=== PATIENT | female | born 1990 | race Caucasian/White ===

== ENCOUNTER 2020-06-26 06:04 | Inpatient (IN) | payer OTHER, SELFPAY ==
[2020-06-26] VITALS (12 sets, daily range): BP systolic 105–138; BP diastolic 68–100; PULSE 90–129; RESP 14–20; TEMP 36.9–37.2; O2SAT 98–100; BMI 24.3
--- NOTE | ~2020-06-26 | CT_ITS ---
EXAMINATION: CT abdomen pelvis w con DATE: 06/26/2020 08:02 INDICATION: Generalized abdominal pain. TECHNIQUE: Computed tomography (CT) of the abdomen and pelvis was performed with 100 mL Omnipaque 350 intravenous contrast. Automated exposure control and iterative reconstruction technique were employe d. The dose-length product was 382.67 mGy-cm. COMPARISON: None. FINDINGS: The visualized portions of the lung bases demonstrate mild atelectasis. No pleural effusion . The heart size is normal. No pericardial effusion. The liver and spleen are normal. There are galls tones in the gallbladder, which is normal in size. The pancreas, adrenal glands, and kidneys are norm al. There are no dilated loops of bowel. There is wall thickening of loops of jejunum, consistent wit h enteritis. The appendix is normal. There are no pathologically enlarged lymph nodes. There is no fr ee intraperitoneal fluid. There is fat stranding in the greater omentum, consistent with edema versus inflammation. There is mild lumbar spondylosis. IMPRESSION: 1. Wall thickening of loops of jejunum, consistent with enteritis. 2. Cholelithiasis. No evidence of acute cholecystitis. Reviewed, dictated and finalized at location A.
--- NOTE | 2020-06-26 06:22 | PC.NURSE ---
Faxing paper work to [facility] to request pt. records.
--- NOTE | 2020-06-26 06:26 | ED.GENADULT ---
HPI - General Adult General Chief complaint: Abdominal Pain <Jacky Yoo MD - Last Filed: 06/26/20 06:28> Stated complaint: abd pain <Jacky Yoo MD - Last Filed: 06/26/20 06:28> Time Seen by Provider: 06/26/20 06:22 <Jacky Yoo MD - Last Filed: 06/26/20 06:28> History of Present Illness HPI narrative: Patient is a 20-year-old female presents the emergency department with chief complaint of abdominal pain. The patient reports that yesterday she had sudden onset right lower quadrant pain radiates to her back patient was seen at [facility] and had laboratory studies and a CT scan that were reported as negative. Patient was sent home with a prescription for naproxen and Bentyl. The patient reports that she is continued to have pain that is gotten worse today. Patient states the pain is sharp and cramping-like patient reports not improved by anything and states is worsened with movement. Patient reports she still has her gallbladder and still has her appendix <Jacky Yoo MD - Last Filed: 06/26/20 06:28> Related Data Allergies/adverse reactions: Allergies Allergy/AdvReac Type Severity Reaction Status Date / Time No Known Allergies Allergy Verified 06/26/20 06:12 <Jacky Yoo MD - Last Filed: 06/26/20 06:28> Review of Systems Review of Systems: Narrative: A 10 system review of systems was completed on the patient and is negative except for what is stated in the HPI. Nursing and ancillary documentation was reviewed. <Jacky Yoo MD - Last Filed: 06/26/20 06:28> PMFSH Social History Social History: Social History Gender identity (if verbalized by the patient): Female <Jacky Yoo MD - Last Filed: 06/26/20 06:28> Exam Narrative: Exam Narrative: GENERAL: Well-appearing, well-nourished, and in no acute distress. HEAD: Normocephalic, atraumatic. EYES: PERRLA and EOMI. ENT: Nares clear, no rhinorrhea or epistaxis. Mucous membranes moist. NECK: Supple. CHEST: Clear to auscultation. No respiratory distress. HEART: Regular rate and rhythm. No murmur heard. Normal peripheral pulses. ABDOMEN: Soft, diffuse tenderness throughout the abdomen, nondistended, normal active bowel sounds. EXTREMITIES: Normal range of motion. No edema. SKIN: Warm, dry, no rash. NEURO: No focal deficits. Alert and oriented x3. PSYCH: Normal mood and affect. <Jacky Yoo MD - Last Filed: 06/26/20 06:28> Course Vital Signs Vital signs: Vital Signs Temperature 36.9 C 06/26/20 06:09 Pulse Rate 129 H 06/26/20 06:09 Respiratory Rate 14 06/26/20 06:09 Blood Pressure 138/100 H 06/26/20 06:09 Pulse Oximetry 99 06/26/20 06:09 Temperature 36.9 C 06/26/20 06:09 Pulse Rate 107 H 06/26/20 07:45 Respiratory Rate 20 06/26/20 07:45 Blood Pressure 136/77 06/26/20 07:45 Pulse Oximetry 100 06/26/20 07:45 <Jacky Yoo MD - Last Filed: 06/26/20 06:28> Vital Signs Temperature 36.9 C 06/26/20 06:09 Pulse Rate 129 H 06/26/20 06:09 Respiratory Rate 14 06/26/20 06:09 Blood Pressure 138/100 H 06/26/20 06:09 Pulse Oximetry 99 06/26/20 06:09 Temperature 36.9 C 06/26/20 06:09 Pulse Rate 107 H 06/26/20 07:45 Respiratory Rate 20 06/26/20 07:45 Blood Pressure 136/77 06/26/20 07:45 Pulse Oximetry 100 06/26/20 07:45 <Fadia Monge MD - Last Filed: 06/26/20 08:54> Medical Decision Making Vital Signs Vital Signs: Vital Signs Temperature 36.9 C 06/26/20 06:09 Pulse Rate 129 H 06/26/20 06:09 Respiratory Rate 14 06/26/20 06:09 Blood Pressure 138/100 H 06/26/20 06:09 Pulse Oximetry 99 06/26/20 06:09 Temperature 36.9 C 06/26/20 06:09 Pulse Rate 107 H 06/26/20 07:45 Respiratory Rate 20 06/26/20 07:45 Blood Pressure
[2020-06-26] MEDS: MORPHINE SULFATE (*CRX) 4 MG/ML INJ IV PUSH ×3 (06:31→10:48)
[2020-06-26] MEDS: SODIUM CHLORIDE 0.9% IV 1,000 ML 999 ML IV CONT ×2 (06:31→07:03)
[2020-06-26] MEDS: ONDANSETRON INJ 4 MG/2 ML VIAL IV PUSH ×2 (06:32→17:17)
[2020-06-26 06:47] LABS: Basophils Percent Auto 0.2 % (0.2-1.2); Eosinophils Percent Auto 0.1 % (0-4.4); Hematocrit 40.7 % (37.0-47.0); Hemoglobin 13.6 g/dL (12.0-15.0); Immature Granulocyte Absolute 0.16 K/mm3 (0.00-0.031); Immature Granulocyte Percent A 0.8 % (0-0.5); Lymphocytes Absolute Auto 1.11 K/mm3 (0.9-3.2); Lymphocytes Percent Auto 5.6 % (18.3-44.2); Mean Corpuscular HGB Conc 33.4 g/dl (32-36); Mean Corpuscular Hemoglobin 30.7 pg (26-34); Mean Corpuscular Volume 91.9 fl (80-100); Monocytes Absolute Auto 0.4 K/mm3 (0.1-0.6); Monocytes Percent Auto 1.8 % (2.6-8.5); Neutrophils Absolute Auto 18.1 K/mm3 (1.3-6.7); Neutrophils Percent Auto 91.5 % (45.5-73.1); Platelet Count Result 154 k/mm3 (150-375); Red Blood Count 4.43 M/mm3 (4.2-5.4); Red Cell Distribution Width 12.5 % (11.5-14.5); White Blood Count 19.7 K/mm3 (4.5-10.0)
[2020-06-26 06:55] LABS: Lactic Acid Reflex 3.2 mmol/L (0.7-2.1)
[2020-06-26 06:58] LABS: Alkaline Phosphatase 52 U/L (38-126); Anion Gap 9 mmol/L (8-16); Aspartate Amino Transferase 30 U/L (14-36); Blood Urea Nitrogen 9 mg/dL (7-17); Calcium 8.5 mg/dL (8.4-10.2); Carbon Dioxide 20 mmol/L (22-30); Chloride 106 mmol/L (98-107); Estimated CRCL calculation 149 ml/min; Estimated Glomerular Filt Rate > 60; Glucose 142 mg/dL (65-105); Lipase 278 U/L (23-300); Potassium 3.6 mmol/L (3.4-5.0); Sodium 135 mmol/L (137-145)
[2020-06-26 07:07] LABS: Alanine Aminotransferase 25 U/L (4-35)
[2020-06-26 08:03] LABS: Add Urine Microscopic? YES; Appearance Urine Clear (Clear); Bacteria Urine Trace /hpf; Bilirubin Urine Negative (Negative); Blood Urine Negative (Negative); Color Urine Yellow (Yellow); Glucose Urine UA Negative (Negative); Ketones Urine Negative (Negative); Leukocyte Esterase Ur Negative LEU/UL (Negative); Mucus Urine Rare /lpf; Nitrate Urine Negative (Negative); Protein Urine 1+ mg/dL (Negative); RBC Urine 0-2 /hpf (0-2); Specific Grav Ur 1.014 (1.001-1.035); Squamous Epithelial Cell Urine Rare /hpf (Few); Urobilinogen Urine Negative mg/dL (<2.0); WBC Urine 0-3 /hpf
[2020-06-26 09:42] LABS: Reflex Lactic Acid Yes or No Add Lactic
--- NOTE | 2020-06-26 11:17 | ADMGEN ---
This patient, Kylee Morales, was admitted to 3 [facility] Surg Room 326-01 at 1050. Report received from Cornelia. Patient/family oriented to hospital policies and general routines including ID bracelet, bed and alarms, visiting hours, pain management, procedures, bathroom and other care routines, personal items, smoking policy, room service/diet, and visiting hours. Information on how to activate the Rapid Response Team has been discussed. Patient/Family are encouraged to report perceived risks to care and to ask questions if they do not understand what they are told or what they should do.
[2020-06-26 11:28] LABS: Lactic Acid 1.1 mmol/L (0.7-2.1)
[2020-06-26] MEDS: SODIUM CHLORIDE 0.9% IV 1,000 ML 125 ML IV CONT ×2 (12:40→23:14)
--- NOTE | 2020-06-26 12:55 | PM.IMHP ---
H&P: HPI History of Present Illness Date/Time: 06/26/20 12:55 Chief Complaint: Abdominal pain. Narrative: This is a 29-year-old female smoker with history of IV drug abuse who presented to the emergency department earlier today via private vehicle from home for evaluation of abdominal pain. Yesterday she developed sudden onset right lower quadrant pain which started about an hour after eating lunch which consisted of salad and baked chicken. She was seen in the emergency department at [facility] and laboratory studies and CT of the abdomen and pelvis were reportedly negative and she was sent home with prescriptions for naproxen and Bentyl. Unfortunately she has continued to have severe abdominal pain though she has not had a chance to fill her prescriptions filled. Currently she describes sharp and cramping like pain throughout the right side of the abdomen with nausea and emesis x1. The pain is much more manageable after receiving IV Tylenol, rated currently 3/10. She gives no aggravating or alleviating factors. Nobody else who ate the meal has developed similar symptoms. She did not handle the raw chicken prior to preparation. She has never had similar symptoms in the past and denies personal and family history of inflammatory bowel disease. No recent travel. No diarrhea. No recent antibiotic use. Review of Systems Review of Systems: Narrative: Twelve systems were reviewed with pertinent positives and negatives as per HPI. She has lost about 10 pounds in the last couple of months however was doing IV crystal meth up until 3 weeks ago. She has not had any withdrawal symptoms from stopping that and denies any other drug abuse. No sinus congestion, rhinorrhea, otalgia, or odynophagia. She does wheeze quite frequently but has never been diagnosed with asthma however she suspects that she likely has it. No dysphagia or concerns for aspiration. She denies dysuria and pelvic pain. Except as documented, all other systems were reviewed and are negative. [facility] Past Medical History Medical History Anorexia Bipolar disorder Depression with anxiety History of suicide attempt (01/2018) Polysubstance abuse Tobacco dependence Surgical History Surgical History History of 2 sections History of arthroscopy of right knee Family History Family History Grandparent Breast cancer Hypertension Diabetes mellitus Blind Father Cholecystitis Social History Social History (Updated 06/26/20 @ 23:09 by Zoila Henning PA-C) Social History: The patient lives in [place]. She has 2 children. Currently unemployed. Has smoked 1 pack of cigarettes per day for the last 15 years. Uses marijuana frequently. History IV methamphetamine use, last used the 1st week of June 2020. Denies alcohol abuse. She designates her mother, Emy Morales, as her surrogate decision maker and she wishes to be a full code. Meds Home Medications and Allergies Home Medications Medication Instructions Recorded Confirmed Type No Home Medications 06/26/20 06/26/20 History Allergies Allergy/AdvReac Type Severity Reaction Status Date / Time No Known Allergies Allergy Verified 06/26/20 06:12 Vital Signs Vital Signs - 24 hr 06/26/20 06:09 06/26/20 06:23 06/26/20 07:45 Temperature 98.4 F Pulse Rate 129 H 117 H 107 H Respiratory Rate 14 18 20 Blood Pressure 138/100 H 133/82 136/77 Pulse Oximetry 99 100 100 06/26/20 09:17 06/26/20 10:08 06/26/20 10:35 Temperature 98.8 F Pulse Rate 112 H 113 H 101 H Respiratory Rate 20 19 20 Blood Pressure 129/76 126/85 124/75 Pulse Oximetry 98 100 100 06/26/20 12:16 Temperature Pulse Rate Respiratory Rate Blood Pressure Pulse Oximetry 100 Exam Narrative: Exam Narrative:
--- NOTE | 2020-06-26 13:16 | ECG_ITS ---
Measurements Intervals [place] Rate: 98 P: -18 [place]: 134 QRS: -17 QRSD: 92 T: 22 QT: 340 QTc: 434 Interpretive Statements SINUS RHYTHM NORMAL ECG Electronically Signed On 06-26-2020 14:43:08 CDT by Neri Bowen D.O.
[2020-06-26 14:26] LABS: Anion Gap 3 mmol/L (8-16); Blood Urea Nitrogen 7 mg/dL (7-17); CRP 22.2 mg/dL (<1.0); Calcium 7.4 mg/dL (8.4-10.2); Carbon Dioxide 25 mmol/L (22-30); Chloride 108 mmol/L (98-107); Estimated CRCL calculation 130 ml/min; Estimated Glomerular Filt Rate > 60; Glucose 90 mg/dL (65-105); Magnesium 1.3 mg/dL (1.6-2.3); Potassium 3.5 mmol/L (3.4-5.0); Sodium 136 mmol/L (137-145)
[2020-06-26] MEDS: metroNIDAZOLE 500 MG/ISO 100ML 500 MG/100 ML BAG 100 MG IVPB ×2 (17:17→23:11)
[2020-06-26 17:25] LABS: Amphetamine Screen Urine Negative (Negative); Barbiturate Screen Urine Negative (Negative); Benzodiazepines Screen Urine Negative (Negative); Cannabinoid Screen Urine Positive (Negative); Cocaine Screen Urine Negative (Negative); Methadone Screen Urine Negative (Negative); Opiate Screen Urine Positive (Negative); Phencyclidine Screen Urine Negative (Negative)
[2020-06-26] MEDS: ACETAMINOPHEN 325 MG TABLET 650 MG PO (21:21)
[2020-06-27] VITALS (8 sets, daily range): BP systolic 123–146; BP diastolic 72–75; PULSE 71–110; RESP 16–20; TEMP 36.1–37.8; O2SAT 99–100; BMI 24.3
[2020-06-27] MEDS: ACETAMINOPHEN 325 MG TABLET 650 MG PO (03:18)
[2020-06-27] MEDS: metroNIDAZOLE 500 MG/ISO 100ML 500 MG/100 ML BAG 100 MG IVPB ×3 (06:14→18:03)
[2020-06-27 06:17] LABS: Hematocrit 33.8 % (37.0-47.0); Hemoglobin 11.4 g/dL (12.0-15.0); Immature Platelet Fraction Pct 2.9 % (0.9-11.2); Mean Corpuscular HGB Conc 33.7 g/dl (32-36); Mean Corpuscular Hemoglobin 30.8 pg (26-34); Mean Corpuscular Volume 91.4 fl (80-100); Mean Platelet Volume 9.7 fl (7.4-10.4); Platelet Count Result 127 k/mm3 (150-375); Red Cell Distribution Width 12.6 % (11.5-14.5); White Blood Count 17.6 K/mm3 (4.5-10.0)
[2020-06-27 06:21] LABS: Potassium 3.5 mmol/L (3.4-5.0)
[2020-06-27 06:22] LABS: Alanine Aminotransferase 43 U/L (4-35); Albumin Level 2.9 g/dL (3.5-5.1); Alkaline Phosphatase 61 U/L (38-126); Anion Gap 3 mmol/L (8-16); Aspartate Amino Transferase 36 U/L (14-36); Bilirubin,Total 0.6 mg/dL (0.2-1.3); Blood Urea Nitrogen 8 mg/dL (7-17); Calcium 7.9 mg/dL (8.4-10.2); Carbon Dioxide 24 mmol/L (22-30); Chloride 110 mmol/L (98-107); Estimated CRCL calculation 110 ml/min; Estimated Glomerular Filt Rate > 60; Glucose 100 mg/dL (65-105); Magnesium 1.6 mg/dL (1.6-2.3); Sodium 137 mmol/L (137-145)
--- NOTE | 2020-06-27 06:36 | PC.NURSE ---
0640: Called Hospitalist, Dr. Malu Slater to inform that patient is requesting stronger analgesia than Tylenol. Dr. Slater stated I do not have all of your patients. Who's her Attending? She is not on my list. [employer] responded that I will call her Attending, Dr. Read. 0645: Dr. Read returned VM from administrative underwriter to inform that he is off today and that he does not know who is covering for his patients. When looking on the Intranet list of covering docs, Dr. Slater is listed until 7a on this day for all in-house calls, concerns and reports. Will endorse to the AM shift.
[2020-06-27] MEDS: MAGNESIUM SULF 2 GM/WATER 50ML 2 GM/50 ML BAG IVPB (09:09)
[2020-06-27] MEDS: BISACODYL 5 MG TABLET EC PO (11:46)
--- NOTE | 2020-06-27 14:40 | PM.IMPN ---
Progress Note: A&P Assessment and Plan (1) Enteritis: Code(s): K52.9 - Noninfective gastroenteritis and colitis, unspecified Status: Acute Assessment and Plan: Patient presents with abdominal pain. CT abdomen/pelvis demonstrates evidence of enteritis. Diarrhea and vomiting yesterday, none so far today. Continue IV antibiotics with Levaquin and Flagyl. Continue supportive care with antiemetics, pain control. Tolerating very little oral intake today. Clear liquid diet, advance diet as tolerated. (2) Sepsis: Qualifiers: Sepsis type: sepsis due to unspecified organism Sepsis acute organ dysfunction status: unspecified Qualified Code(s): A41.9 - Sepsis, unspecified organism Code(s): A41.9 - Sepsis, unspecified organism Status: Acute Assessment and Plan: Criteria met on arrival evidenced by leukocytosis and tachycardia. These findings could be related to stress reaction from above, although an infectious source could be the enteritis. Blood cultures pending with no growth to date. Continue antibiotics as above. Monitor vital signs and urine output. (3) Polysubstance abuse: Code(s): F19.10 - Other psychoactive substance abuse, uncomplicated Status: Chronic Assessment and Plan: Recently quit using IV crystal methamphetamine around 3 weeks ago. Continued tobacco abuse, denies need for nicotine patch today. (4) Wheezing: Code(s): R06.2 - Wheezing Status: Acute Assessment and Plan: Resolved today. It is possible she may have a diagnosis of asthma. Started on inhalers. Continue Symbicort and albuterol PRN. Subjective Date/time seen: 06/27/20 1430 Interval history: Ms. Morales is a 29yo F admitted with abdominal pain and enteritis. She reports feeling little bit better today overall but still having right lower quadrant abdominal pain which she rates an 8/10 at time my exam. She starts to feel nauseous when she tries to eat anything but has tolerated some soup broth a popsicle so far today. She denies any vomiting. Last bowel movement was yesterday when she was incontinent of diarrheal stool, no BM so far today. No chest pain or shortness of breath. Has been up walking in the room. Review of Systems Review of Systems: All systems reviewed & are unremarkable except as noted in HPI and below Exam Narrative: Exam Narrative: General: Female lying on her right side in bed appears uncomfortable but in no acute distress. HEENT: Normocephalic. EOMI. Tacky mucous membranes. Bottom lip pierced. Neck: Supple. Respiratory: Respirations are even and nonlabored. Lungs clear to auscultation all luna. Tolerating room air. Cardiovascular: Rate and rhythm are regular. Gastrointestinal: Abdomen is soft and nondistended with positive bowel sounds. She is tender to palpation throughout the right lower abdomen. No voluntary guarding or rebound tenderness. Skin: Warm and dry. No rash or lesions on limited exam. Extremities: No cyanosis, clubbing, or edema. Radial and pedal pulses intact. Neurological: Awake and alert, answering questions appropriately. No focal neurological deficits are noted. Speech is clear. Psychiatric: Pleasant and cooperative with normal mood and affect. Objective Data Vital Signs Vital Signs: Last Vital Signs Temp 97.1 F L 06/27/20 14:00 Pulse 100 06/27/20 14:00 Resp 16 06/27/20 14:00 BP 146/75 H 06/27/20 14:00 Pulse Ox 100 06/27/20 14:00 Intake/Output Intake/Output: Intake & Output 06/24/20 06/25/20 06/26/20 06/27/20 23:59 23:59 23:59 23:59 Intake Total 4400 560 Output Total 400 450 Balance 4000 110 Meds/Results Medications: Active Medications Generic Name Dose Route Start Last Admin Trade Name Katherin JAMA
--- NOTE | 2020-06-27 18:07 | PC.NURSE ---
Patient noted to have IV pump shut off. When this nurse asked why it was off, patient noted that IV pump was beeping and didn't want to listen to it. Patient educated on importance of IV fluid intake and reminded to call if pump beeps. Patient voiced understanding and noted will call next time it beeps.
[2020-06-27] MEDS: traMADol HCL (*CRX) 50 MG TABLET PO (19:44)
[2020-06-28] MEDS: metroNIDAZOLE 500 MG/ISO 100ML 500 MG/100 ML BAG 100 MG IVPB ×3 (00:07→11:59)
[2020-06-28] MEDS: SODIUM CHLORIDE 0.9% IV 1,000 ML 125 ML IV CONT (00:16)
[2020-06-28 05:31] VITALS: BP 118/80; PULSE 87; RESP 18; TEMP 37.2; O2SAT 99
[2020-06-28 06:43] LABS: Basophils Percent Auto 0.2 % (0.2-1.2); Eosinophils Absolute Auto 0.1 K/mm3 (0-0.3); Eosinophils Percent Auto 0.8 % (0-4.4); Hematocrit 31.9 % (37.0-47.0); Hemoglobin 10.7 g/dL (12.0-15.0); Immature Granulocyte Absolute 0.06 K/mm3 (0.00-0.031); Immature Granulocyte Percent A 0.5 % (0-0.5); Lymphocytes Absolute Auto 1.53 K/mm3 (0.9-3.2); Lymphocytes Percent Auto 12.6 % (18.3-44.2); Mean Corpuscular HGB Conc 33.5 g/dl (32-36); Mean Corpuscular Hemoglobin 30.4 pg (26-34); Mean Corpuscular Volume 90.6 fl (80-100); Monocytes Absolute Auto 0.7 K/mm3 (0.1-0.6); Monocytes Percent Auto 5.6 % (2.6-8.5); Neutrophils Absolute Auto 9.8 K/mm3 (1.3-6.7); Neutrophils Percent Auto 80.3 % (45.5-73.1); Platelet Count Result 153 k/mm3 (150-375); Red Blood Count 3.52 M/mm3 (4.2-5.4); Red Cell Distribution Width 12.3 % (11.5-14.5); White Blood Count 12.2 K/mm3 (4.5-10.0)
[2020-06-28 06:53] LABS: Alanine Aminotransferase 27 U/L (4-35); Albumin Level 2.8 g/dL (3.5-5.1); Alkaline Phosphatase 65 U/L (38-126); Anion Gap 4 mmol/L (8-16); Aspartate Amino Transferase 22 U/L (14-36); Bilirubin,Total 0.4 mg/dL (0.2-1.3); Blood Urea Nitrogen 6 mg/dL (7-17); Calcium 7.7 mg/dL (8.4-10.2); Carbon Dioxide 24 mmol/L (22-30); Chloride 109 mmol/L (98-107); Estimated CRCL calculation 110 ml/min; Estimated Glomerular Filt Rate > 60; Glucose 96 mg/dL (65-105); Magnesium 1.8 mg/dL (1.6-2.3); Potassium 3.6 mmol/L (3.4-5.0); Sodium 137 mmol/L (137-145)
--- NOTE | 2020-06-28 13:16 | PM.DS ---
DS: Admitting Diagnosis Admitting Diagnosis Admitting Diagnosis: Enteritis, sepsis DS: Discharge Diagnosis Discharge Diagnosis (1) Enteritis: Code(s): K52.9 - Noninfective gastroenteritis and colitis, unspecified Status: Acute Assessment and Plan: Date of Admission 06/26/20 Date of Discharge 06/29/20 Ms. Morales is a 29yo F who presented to the ED for evaluation of abdominal pain. CT abd/pel demonstrated evidence of enteritis without perforation or abscess. She was treated with supportive care including IV antibiotics, bowel rest, IV hydration, pain control and antiemetics. Sepsis criteria met on arrival with leukocytosis and tachycardia which improved. Her diet was gradually advanced and she was tolerating solid food without abdominal pain, nausea or vomiting on day of discharge. She was clinically improved with the therapy outlined above and was hemodynamically stable for discharge 06/29/20 with oral antibiotics to complete the course and a list of local primary care providers to establish care. She was wheezing on arrival, improved with albuterol. She was educated on smoking cessation. She has history of IV drug use and mentions she quit using IV drugs 3 weeks ago. She was congratulated and encouraged in her continued efforts with substance abuse cessation. She was encouraged to seek PCP at [facility] who could also provide substance abuse resources for her as appropriate. (2) Sepsis: Qualifiers: Sepsis type: sepsis due to unspecified organism Sepsis acute organ dysfunction status: unspecified Qualified Code(s): A41.9 - Sepsis, unspecified organism Code(s): A41.9 - Sepsis, unspecified organism Status: Acute Assessment and Plan: Criteria met on arrival evidenced by leukocytosis and tachycardia. These findings could be related to stress reaction from above, although an infectious source could be the enteritis. Stool studies and blood cultures are negative. (3) Polysubstance abuse: Code(s): F19.10 - Other psychoactive substance abuse, uncomplicated Status: Chronic Assessment and Plan: Recently quit using IV crystal methamphetamine around 3 weeks ago. Continued tobacco use, denies need for nicotine patch today. (4) Wheezing: Code(s): R06.2 - Wheezing Status: Acute Assessment and Plan: Resolved today. It is possible she may have a diagnosis of asthma. Started on inhalers. Continue Symbicort and albuterol PRN. DS: Summary Hospital Course Hospital Course: See above Time Spent with Patient Time attestation: Total time spent providing and/or coordinating discharge services: 40 minutes Exam Narrative: Exam Narrative: General: Female lying on her right side in bed appears uncomfortable but in no acute distress. HEENT: Normocephalic. EOMI. Tacky mucous membranes. Bottom lip pierced. Neck: Supple. Respiratory: Respirations are even and nonlabored. Lungs clear to auscultation all luna. Tolerating room air. Cardiovascular: Rate and rhythm are regular. Gastrointestinal: Abdomen is soft and nondistended with positive bowel sounds. She is tender to palpation throughout the right lower abdomen. No voluntary guarding or rebound tenderness. Skin: Warm and dry. No rash or lesions on limited exam. Extremities: No cyanosis, clubbing, or edema. Radial and pedal pulses intact. Neurological: Awake and alert, answering questions appropriately. No focal neurological deficits are noted. Speech is clear. Psychiatric: Pleasant and cooperative with normal mood and affect. DS: Data Data Completed and Pending Labs on day of discharge: Last Vital Signs Temp 96 F L 06/28/20 14:00 Pulse 96 06/28/20 14:00 Resp 16 06/28/20 14:00 BP 128/83 06/28/20 14:00 Pulse Ox 100 06/28
[2020-06-28 14:00] VITALS: BP 128/83; PULSE 96; RESP 16; TEMP 35.5; O2SAT 100
== END 2020-06-28 15:50 | disposition home or self-care (01) | DRG 720 ==
LOC: ANHED 08:54 → ANH3MEDSUR 12:02
PROVIDERS: Emergency Medicine; Physician Assistant; Admitting Provider Family Medicine; Emergency Provider Emergency Medicine; Visit Provider Physician Assistant
DX: A41.9 Sepsis, unspecified organism (principal); A09 Infectious gastroenteritis and colitis, unspecified; R65.10 Systemic inflammatory response syndrome (SIRS) of non-infectious origin without acute organ dysfunction; F31.9 Bipolar disorder, unspecified; F41.8 Other specified anxiety disorders; F17.210 Nicotine dependence, cigarettes, uncomplicated; R63.0 Anorexia; F19.10 Other psychoactive substance abuse, uncomplicated; J45.909 Unspecified asthma, uncomplicated
CPT/HCPCS: 36415; 74177; 80048; 80053; 80307; 81001; 81025; 83605; 83690; 83735; 85025; 85027; 85055; 86140; 87015; 87040; 87045; 87046; 87269; 87272; 87427; 93005; 94640; 96361; 96365; 96366; 96367; 96375; 96376; 99285; A9270; J0131; J1956; J2270; J2405; J2543; J3370; J3475; J7030; Q9967

== ENCOUNTER 2020-08-23 16:06 | Emergency (ER) | payer OTHER, SELFPAY ==
--- NOTE | 2020-08-23 16:35 | PC.NURSE ---
no answer when called @ 1292
== END 2020-08-23 16:35 | disposition left against medical advice (07) ==
DX: Z53.21 Procedure and treatment not carried out due to patient leaving prior to being seen by health care provider (principal)
CPT/HCPCS: 99199

== ENCOUNTER 2021-06-21 11:58 | Emergency (ER) | payer OTHER, SELFPAY ==
[2021-06-21 12:05] VITALS: BP 138/95; PULSE 93; RESP 14; TEMP 36.7; O2SAT 99
--- NOTE | 2021-06-21 12:45 | ED.DENTAL ---
HPI - Dental/Oral General Chief complaint: Dental/Oral Stated complaint: tooth pain Time Seen by Provider: 06/21/21 12:17 History of Present Illness HPI Narrative: 30-year-old female presents to the emergency room with complaints of a left upper molar pain since yesterday. Patient states that she has a follow-up with a dentist next week. Describes pain as a burning and sharp pain that is worse with mastication and exposure to cold foods. Related Data Allergies Allergy/AdvReac Type Severity Reaction Status Date / Time No Known Allergies Allergy Verified 06/26/20 06:12 Review of Systems Review of Systems: CONSTITUTIONAL: Denies fever, chills, or sweats. EYES: Denies visual changes, redness, or discharge. ENT: Reports dental pain CARDIOVASCULAR: Denies chest pain, palpitations, or edema. RESPIRATORY: Denies cough or dyspnea. GASTROINTESTINAL: Denies abdominal pain, nausea, vomiting, or diarrhea. GENITOURINARY: Denies dysuria or hematuria. SKIN: Denies rash or itching. MUSCULOSKELETAL: Denies back pain, joint pain, or myalgia. NEUROLOGIC: Denies headache, numbness, dizziness, or weakness. PSYCHIATRIC: Denies anxiety or depression. [facility] Past Medical History Medical History Anorexia Bipolar disorder Depression with anxiety History of suicide attempt (01/2018) Polysubstance abuse Tobacco dependence Surgical History Surgical History History of 2 sections History of arthroscopy of right knee Family History Family History Grandparent Breast cancer Hypertension Diabetes mellitus Blind Father Cholecystitis Social History Social History Social History: The patient lives in [place]. She has 2 children. Currently unemployed. Has smoked 1 pack of cigarettes per day for the last 15 years. Uses marijuana frequently. History IV methamphetamine use, last used the 1st week of June 2020. Denies alcohol abuse. She designates her mother, Emy Morales, as her surrogate decision maker and she wishes to be a full code. Spiritual care concerns: No Exam Narrative: GENERAL: Well-appearing, well-nourished, and in no acute distress. HEAD: Normocephalic, atraumatic. EYES: PERRLA and EOMI. ENT: Tenderness to the left upper molar, fractured left upper molar. No surrounding erythema or swelling no maxillary or submandibular tenderness or swelling NECK: Supple. No adenopathy or masses. No carotid bruits or JVD CHEST: Clear to auscultation. No respiratory distress. No wheezes rales or rhonchi HEART: Regular rate and rhythm. No murmur heard. Normal peripheral pulses. ABDOMEN: Soft, nontender, nondistended, normal active bowel sounds. EXTREMITIES: Normal range of motion. No edema. SKIN: Warm, dry, no rash. NEURO: No focal deficits. Alert and oriented x3. PSYCH: Normal mood and affect. Course Vital Signs Vital signs: Vital Signs Temperature 36.7 C 06/21/21 12:05 Pulse Rate 93 06/21/21 12:05 Respiratory Rate 14 06/21/21 12:05 Blood Pressure 138/95 H 06/21/21 12:05 Pulse Oximetry 99 06/21/21 12:05 Temperature 36.7 C 06/21/21 12:05 Pulse Rate 93 06/21/21 12:05 Respiratory Rate 14 06/21/21 12:05 Blood Pressure 138/95 H 06/21/21 12:05 Pulse Oximetry 99 06/21/21 12:05 Discharge Plan Discharge Clinical Impression: Toothache, Dental caries Patient Disposition: Home, Self-Care Condition: Stable Instructions: Antibiotic Form, Toothache (ED) Prescriptions: New amoxicillin-pot clavulanate 875-125 mg tablet 1 tablet PO Q12H 10 Days Qty: 20 RF: 0 meloxicam 15 mg tablet 15 mg PO DAILY Qty: 14 RF: 0 No Action albuterol sulfate [Proventil HFA] 90 mcg/actuation Hfa Aerosol Inhaler 2 puff inhalation Q4-6H PRN (Reason: Shortness Of
[2021-06-21] MEDS: KETOROLAC (*BKC) 60 MG/2 ML VIAL IM (12:57)
== END 2021-06-21 13:06 | disposition home or self-care (01) ==
PROVIDERS: Emergency Provider Nurse Practitioner Family
DX: K02.9 Dental caries, unspecified (principal); F17.210 Nicotine dependence, cigarettes, uncomplicated
CPT/HCPCS: 96372; 99283; J1885

== ENCOUNTER 2021-07-02 09:21 | Emergency (ER) | payer OTHER, SELFPAY ==
[2021-07-02 09:23] VITALS: BP 132/81; PULSE 92; RESP 14; TEMP 36.2; O2SAT 95
--- NOTE | 2021-07-02 10:12 | ED.SKABFB ---
HPI - Skin/Abscess/Foreign Bdy General Chief complaint: Skin/Abscess/Foreign Body Stated complaint: oozing from belly button Time Seen by Provider: 07/02/21 09:41 History of Present Illness HPI narrative: 30-year-old female presents to the emergency room with complaints of purulent discharge from her umbilicus. Patient states she woke up this morning with a dried substance around her umbilicus. Patient states she cleaned her umbilicus this am and noticed a purulent/bloody discharge. Patient states this has occurred on one other occasion, and was treated with a topical ABX. Patient denies abd. pain, n/v/d, or fever. Related Data Allergies Allergy/AdvReac Type Severity Reaction Status Date / Time No Known Allergies Allergy Verified 07/02/21 09:40 Review of Systems Review of Systems: CONSTITUTIONAL: Denies fever, chills, or sweats. EYES: Denies visual changes, redness, or discharge. ENT: Denies rhinorrhea, congestion, sore throat, or otalgia. CARDIOVASCULAR: Denies chest pain, palpitations, or edema. RESPIRATORY: Denies cough or dyspnea. GASTROINTESTINAL: Denies abdominal pain, nausea, vomiting, or diarrhea. GENITOURINARY: Denies dysuria or hematuria. SKIN: Reports bloody umbilical discharge MUSCULOSKELETAL: Denies back pain, joint pain, or myalgia. NEUROLOGIC: Denies headache, numbness, dizziness, or weakness. PSYCHIATRIC: Denies anxiety or depression. [facility] Past Medical History Medical History Anorexia Bipolar disorder Depression with anxiety History of suicide attempt (01/2018) Polysubstance abuse Tobacco dependence Surgical History Surgical History History of 2 sections History of arthroscopy of right knee Family History Family History Grandparent Breast cancer Hypertension Diabetes mellitus Blind Father Cholecystitis Social History Social History Social History: The patient lives in [place]. She has 2 children. Currently unemployed. Has smoked 1 pack of cigarettes per day for the last 15 years. Uses marijuana frequently. History IV methamphetamine use, last used the 1st week of June 2020. Denies alcohol abuse. She designates her mother, Emy Morales, as her surrogate decision maker and she wishes to be a full code. Spiritual care concerns: No Exam Narrative: GENERAL: Well-appearing, well-nourished, and in no acute distress. HEAD: Normocephalic, atraumatic. EYES: PERRLA and EOMI. CHEST: Clear to auscultation. No respiratory distress. No wheezes rales or rhonchi HEART: Regular rate and rhythm. No murmur heard. Normal peripheral pulses. ABDOMEN: Soft, nontender, nondistended, normal active bowel sounds. EXTREMITIES: Normal range of motion. No edema. SKIN: scant amount of sanguineous exudate from umbilicus, no surrounding erythema, streaking NEURO: No focal deficits. Alert and oriented x3. PSYCH: Normal mood and affect. Course Vital Signs Vital signs: Vital Signs Temperature 36.2 C L 07/02/21 09:23 Pulse Rate 92 07/02/21 09:23 Respiratory Rate 14 07/02/21 09:23 Blood Pressure 132/81 07/02/21 09:23 Pulse Oximetry 95 07/02/21 09:23 Oxygen Delivery Room Air 07/02/21 09:23 Temperature 36.2 C L 07/02/21 09:23 Pulse Rate 92 07/02/21 09:23 Respiratory Rate 14 07/02/21 09:23 Blood Pressure 132/81 07/02/21 09:23 Pulse Oximetry 95 07/02/21 09:23 Oxygen Delivery Room Air 07/02/21 09:23 Discharge Plan Discharge Clinical Impression: Abscess of umbilicus Patient Disposition: Home, Self-Care Condition: Stable Instructions: Antibiotic Form, Abscess (ED) Prescriptions: New cephalexin 500 mg capsule 500 mg PO Q8H Qty: 21 0RF No Action albuterol sulfate [Proventil HFA] 90 mcg/actuation Hfa Aerosol
== END 2021-07-02 10:35 | disposition home or self-care (01) ==
PROVIDERS: Emergency Provider Nurse Practitioner Family
DX: L02.216 Cutaneous abscess of umbilicus (principal)
CPT/HCPCS: 87070; 87205; 99283

== ENCOUNTER 2021-09-03 04:16 | Emergency (ER) | payer OTHER, SELFPAY ==
[2021-09-03] VITALS (12 sets, daily range): BP systolic 118–133; BP diastolic 79–88; PULSE 78–101; RESP 18–20; TEMP 36.2; O2SAT 96–100
--- NOTE | ~2021-09-03 | XR_ITS ---
EXAMINATION: XR chest 1V portable DATE: 09/03/2021 05:07 INDICATION: Cough and shortness of breath TECHNIQUE: frontal view of the chest was obtained. COMPARISON: Chest radiograph dated 03/31/2018 FINDINGS: The lungs remain clear with no focal airspace opacities, pulmonary edema, pleural effusion or pneumot horax. The cardiomediastinal silhouette is normal. Visualized bones and soft tissues are unremarkable . IMPRESSION: 1. No acute cardiopulmonary disease. Reviewed, dictated and finalized at location A.
--- NOTE | 2021-09-03 04:38 | ECG_ITS ---
Measurements Intervals [place] Rate: 79 P: 38 SD: 151 QRS: -18 QRSD: 85 T: 1 QT: 376 QTc: 433 Interpretive Statements SINUS RHYTHM CANNOT RULE OUT SEPTAL INFARCT, AGE INDETERMINATE ABNORMAL ECG Electronically Signed On 09-03-2021 20:09:31 CDT by Neri Bowen D.O.
--- NOTE | 2021-09-03 04:40 | ED.URI ---
HPI - URI/Sore Throat General Chief Complaint: Upper Respiratory Infection Stated Complaint: feeling sick possible covid exposure Time Seen by Provider: 09/03/21 04:30 Source: patient and RN notes reviewed Mode of arrival: ambulatory Limitations: no limitations History of Present Illness HPI Narrative: This is a 30 year old female smoker who presents for evaluation of covid exposure and URI symptoms. Patient states she developed congestion, cough, wheezing and shortness of breath yesterday. She lives with her sister and her sister has been exposed to covid. She denies sister having covid or symptoms. She denies nausea, vomiting, fever, diarrhea. She has received vaccinations for covid. She denies history of asthma or COPD Related Data Allergies Allergy/AdvReac Type Severity Reaction Status Date / Time No Known Allergies Allergy Verified 09/03/21 04:27 Review of Systems Review of Systems: All systems reviewed & are unremarkable except as noted in HPI and below Constitutional: Constitutional: Reports chills, Denies fatigue and Denies fever(s) ENT: Reports nasal congestion and Denies sore throat Cardiovascular: Cardiovascular: Denies rapid heart rate and Denies radiating jaw, neck or arm pain Respiratory: Respiratory: Reports cough, Reports dyspnea and Reports wheezing Gastrointestinal: Gastrointestinal: Denies abdominal pain, Denies nausea and Denies vomiting PMFSH Past Medical History Medical History Anorexia Bipolar disorder Depression with anxiety History of suicide attempt (01/2018) Polysubstance abuse Tobacco dependence Surgical History Surgical History History of 2 sections History of arthroscopy of right knee Family History Family History Grandparent Breast cancer Hypertension Diabetes mellitus Blind Father Cholecystitis Social History Social History Social History: The patient lives in [place]. She has 2 children. Currently unemployed. Has smoked 1 pack of cigarettes per day for the last 15 years. Uses marijuana frequently. History IV methamphetamine use, last used the 1st week of June 2020. Denies alcohol abuse. She designates her mother, Eym Morales, as her surrogate decision maker and she wishes to be a full code. Spiritual care concerns: No Exam Const: General: no acute distress and alert Nutritional Appearance: well nourished Orientation/consciousness: patient oriented x3 Limitations: no limitations HENMT: Head: normal to inspection Ears: TM's normal bilaterally General nose exam: Normal external nose present Mouth: Yes Normal oral and palatal mucosa present Eyes: EOM: EOMs intact bilaterally Neck: Neck: normal visual inspection Chest: Chest palpation & inspection: normal inspection of the chest Resp: Effort & Inspection: normal respiratory effort Auscultation: wheezes expiratory wheezes and throughout Other: able to talk in complete sentences Cardio: Rate: regular rate Rhythm: regular rhythm Heart sounds: no murmurs GI: GI Palp: Yes Soft to palpation, No Tenderness to palpation present (GI) and No Guarding due to palpation present (GI) Auscultation: normal bowel sounds Neuro: General: patient oriented x3, moves all extremities and CN's II-XI intact bilaterally Psych: Mental Status: mental status grossly normal Affect: normal affect Attitude: cooperative Course Reevaluation(s) Reevaluation #1: PAtient states she feels better after albuterol inhaler. I discussed that she will be treated for URI with bronchitis. Date: 09/03/21 Time: 05:40 Vital Signs Vital signs: Vital Signs Temperature 97.2 F L 09/03/21 04:20 Pulse Rate 100 09/03/21 04:20 Respiratory Rate 18 09/03/21 04:20 Blood Pressure 123/88 0
[2021-09-03] MEDS: ALBUTEROL SULFATE (*SP) AEROSOL 1 PUFF 4 PUFF INHALATION (04:49)
[2021-09-03] MEDS: ALBUTEROL SULFATE (*SP) INHALER 1 PUFF (04:52)
[2021-09-03] MEDS: predniSONE 20 MG TABLET 60 MG PO (04:57)
[2021-09-03 05:33] LABS: SARS-CoV-2 RNA PCR Negative
== END 2021-09-03 05:53 | disposition home or self-care (01) ==
PROVIDERS: Emergency Provider General Practice
DX: J20.9 Acute bronchitis, unspecified (principal); Z20.822 Contact with and (suspected) exposure to COVID-19; F17.210 Nicotine dependence, cigarettes, uncomplicated; R94.31 Abnormal electrocardiogram [ECG] [EKG]
CPT/HCPCS: 71045; 93005; 94640; 99283; A9270; C9803; J7512; U0003; U0005

== ENCOUNTER 2021-12-11 12:43 | Emergency (ER) | payer OTHER, SELFPAY ==
--- NOTE | ~2021-12-11 | XR_ITS ---
EXAMINATION: XR chest 2V Exam Date/Time: 12/11/2021 14:25 CDT HISTORY: cough, wheezing Comparison: 09/03/2021. RESULT: Lines, tubes, and devices: None. Lungs and pleura: Clear. Cardiomediastinal silhouette: Stable. Other: No acute osseous or upper abdominal finding. IMPRESSION: No acute cardiopulmonary process. Reviewed, dictated and finalized at location K.
[2021-12-11 13:04] VITALS: BP 125/96; PULSE 112; RESP 18; TEMP 36.6; O2SAT 99
--- NOTE | 2021-12-11 13:09 | ED.GENADULT ---
HPI - General Adult General Chief complaint: Unspecified Stated complaint: SORE THROAT Time Seen by Provider: 12/11/21 13:09 Source: patient Mode of arrival: ambulatory Limitations: no limitations History of Present Illness HPI narrative: Patient is a 31-year-old female with a smoking history who presents to the emergency department for evaluation of cough, sore throat, congestion. Patient states that she has felt unwell, has recent sick contact with her child being sick with similar symptoms. She denies fever, chills, shortness of breath. She reports dry cough and sore throat as well as congestion. She denies ear pain. Patient denies any chest pain. She denies leg swelling or calf pain. Denies nausea or vomiting. Related Data Allergies Allergy/AdvReac Type Severity Reaction Status Date / Time No Known Allergies Allergy Verified 09/03/21 04:27 Review of Systems Review of Systems: CONSTITUTIONAL: Denies fever, chills, or sweats. EYES: Denies visual changes, redness, or discharge. ENT: Reports rhinorrhea, congestion, sore throat CARDIOVASCULAR: Denies chest pain, palpitations, or edema. RESPIRATORY: Patient reports cough, denies shortness of breath GASTROINTESTINAL: Denies abdominal pain, nausea, vomiting, or diarrhea. GENITOURINARY: Denies dysuria or hematuria. SKIN: Denies rash or itching. MUSCULOSKELETAL: Denies back pain, joint pain, or myalgia. NEUROLOGIC: Denies headache, numbness, or weakness. [facility] Past Medical History Medical History Anorexia Bipolar disorder Depression with anxiety History of suicide attempt (01/2018) Polysubstance abuse Tobacco dependence Surgical History Surgical History History of 2 sections History of arthroscopy of right knee Family History Family History Grandparent Breast cancer Hypertension Diabetes mellitus Blind Father Cholecystitis Social History Social History Social History: The patient lives in [place]. She has 2 children. Currently unemployed. Has smoked 1 pack of cigarettes per day for the last 15 years. Uses marijuana frequently. History IV methamphetamine use, last used the 1st week of June 2020. Denies alcohol abuse. She designates her mother, Emy Morales, as her surrogate decision maker and she wishes to be a full code. Spiritual care concerns: No Exam Narrative: GENERAL: Awake, alert, conversant HEAD: Normocephalic, atraumatic. EYES: PERRLA and EOMI. ENT: Nares clear, there is rhinorrhea without epistaxis. Mucous membranes moist. Uvula is midline. Patient has history of tonsillectomy, no tonsils present. There is erythema of the oropharynx without petechiae. NECK: Supple. CHEST: No respiratory distress, breathing even and non labored, expiratory wheezing bilateral lower lung luna, rhonchi bilateral mid lung luna HEART: Regular rate, sinus rhythm ABDOMEN:Non distended, non tender EXTREMITIES: Normal range of motion. No edema. SKIN: Warm, dry, no rash. NEURO:No focal deficits. Alert and oriented x3 Course Vital Signs Vital signs: Vital Signs Temperature 36.6 C 12/11/21 13:04 Pulse Rate 112 H 12/11/21 13:04 Respiratory Rate 18 12/11/21 13:04 Blood Pressure 125/96 H 12/11/21 13:04 Pulse Oximetry 99 12/11/21 13:04 Temperature 36.6 C 12/11/21 13:04 Pulse Rate 112 H 12/11/21 14:18 Respiratory Rate 18 12/11/21 14:18 Blood Pressure 125/96 H 12/11/21 13:04 Pulse Oximetry 99 12/11/21 13:04 Medical Decision Making [facility] Narrative Medical decision making narrative: Patient presenting for evaluation of upper respiratory infection type symptoms with congestion, cough, sore throat. At the time of assessment, ABCs are intact, patient is mildly tachycardic. She is wheezing which
[2021-12-11 13:48] LABS: Influenza A QL RT-PCR Negative (Negative); Influenza B QL RT-PCR Negative (Negative); SARS-CoV-2 RNA PCR Negative
[2021-12-11 14:18] VITALS: PULSE 112; RESP 18
[2021-12-11] MEDS: ALBUTEROL SULFATE NEB 2.5 MG/3 ML INH 5 MG INHALATION (14:20)
[2021-12-11] MEDS: IPRATROPIUM BR 0.02% INH SOLN 0.5 MG/2.5 ML VIAL INHALATION (14:20)
[2021-12-11] MEDS: IBUPROFEN 400 MG TABLET PO (14:22)
[2021-12-11] MEDS: ACETAMINOPHEN 500 MG TABLET 1000 MG PO (14:22)
== END 2021-12-11 14:44 | disposition home or self-care (01) ==
PROVIDERS: Emergency Provider Emergency Medicine
DX: J06.9 Acute upper respiratory infection, unspecified (principal); R06.2 Wheezing; Z20.822 Contact with and (suspected) exposure to COVID-19; F17.210 Nicotine dependence, cigarettes, uncomplicated
CPT/HCPCS: 71046; 87081; 87502; 87880; 94640; 96374; 99284; A9270; J1100; U0003; U0005

== ENCOUNTER 2022-05-14 18:52 | Emergency (ER) | payer OTHER, SELFPAY ==
[2022-05-14 18:58] VITALS: BP 152/91; PULSE 91; RESP 16; TEMP 36.7; O2SAT 99
--- NOTE | 2022-05-14 19:44 | ED.GENADULT ---
HPI - General Adult General Chief complaint: Wound/Laceration Stated complaint: umbilical infection Time Seen by Provider: 05/14/22 19:05 History of Present Illness HPI narrative: This is a 31-year-old female presenting ED with belly button discharge. Her last 2 days she has been waking up morning with a reddish crusty discharge from her belly button. She says this has happened to her in the past and was treated with an unknown cream with complete resolution. The patient denies any skin changes, fever, chills nausea vomiting or diarrhea. Related Data Allergies Allergy/AdvReac Type Severity Reaction Status Date / Time No Known Allergies Allergy Verified 09/03/21 04:27 [facility] Past Medical History Medical History Anorexia Bipolar disorder Depression with anxiety History of suicide attempt (01/2018) Polysubstance abuse Tobacco dependence Surgical History Surgical History History of 2 sections History of arthroscopy of right knee Family History Family History Grandparent Breast cancer Hypertension Diabetes mellitus Blind Father Cholecystitis Social History Social History Social History: The patient lives in [place]. She has 2 children. Currently unemployed. Has smoked 1 pack of cigarettes per day for the last 15 years. Uses marijuana frequently. History IV methamphetamine use, last used the 1st week of June 2020. Denies alcohol abuse. She designates her mother, Emy Morales, as her surrogate decision maker and she wishes to be a full code. Spiritual care concerns: No Exam Narrative: APPEARANCE: No apparent distress. Head: atraumatic. EYES: EOMI, NOSE: Atraumatic NECK: Trachea midline RESPIRATORY: No increased rate of breathing CARDIOVASCULAR: RRR, ABDOMINAL: Abdomen is soft nontender no guarding rebound, focal exam of the umbilicus reveals no erythema discharge fluctuant mass. MUSCULOSKELETAl: No obvious deformities NEURO: Alert. Moving 4/4 extremities SKIN:: Warm, dry. Normal color PSYCHIATRIC: Normal affect Course Vital Signs Vital signs: Vital Signs Temperature 98.1 F 05/14/22 18:58 Pulse Rate 91 05/14/22 18:58 Respiratory Rate 16 05/14/22 18:58 Blood Pressure 152/91 H 05/14/22 18:58 Pulse Oximetry 99 05/14/22 18:58 Oxygen Delivery Room Air 05/14/22 18:58 Temperature 98.1 F 05/14/22 18:58 Pulse Rate 91 05/14/22 18:58 Respiratory Rate 16 05/14/22 18:58 Blood Pressure 152/91 H 05/14/22 18:58 Pulse Oximetry 99 05/14/22 18:58 Oxygen Delivery Room Air 05/14/22 18:58 Medical Decision Making MDM Narrative Medical decision making narrative: -Presentation: 31-year-old female presenting with umbilical discharge -DDX includes but is not limited to: omphalitis, dermatitis, infectious urachal remnent, infectioni of vitteline duct. 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 Patient will be treated with miconazole cream. She is instructed follow-up with her primary care physician. She develops worsening redness of her belly button, abdominal pain or systemic signs is illness such as fever chills nausea vomiting diarrhea she should return emergency department for re-evaluation. -RX: miconazole cream Vital Signs Vital Signs: Vital Signs Temperature 98.1 F 05/14/22
== END 2022-05-14 20:16 | disposition home or self-care (01) ==
LOC: ANHED 20:01
PROVIDERS: Emergency Provider Emergency Medicine
DX: L30.9 Dermatitis, unspecified (principal); F17.210 Nicotine dependence, cigarettes, uncomplicated
CPT/HCPCS: 99281; 99283

== ENCOUNTER 2023-05-11 07:53 | Emergency (ER) | payer OTHER, SELFPAY ==
--- NOTE | ~2023-05-11 | CT_ITS ---
CT of the Abdomen and Pelvis: Indication: Abdominal pain Technique: 2.5 mm axial scans were obtained through the abdomen and pelvis following intravenous adm inistration of 100 cc of Omnipaque 350. Dose reduction technique was used on this scan by utilizing a utomated exposure control and iterative reconstruction technique. The dose-length product (DLP) was 6 92.77 mGy-cm. Findings: Scans through the lung bases are unremarkable. The liver, spleen, pancreas, gallbladder, adrenals and kidneys are within normal limits. No evidence of aortic aneurysm. No lymphadenopathy. No bowel obstruction or bowel wall thickening. There is no evidence to suggest acute appendicitis. Images through the pelvis were performed. Urinary bladder unremarkable. No pelvic mass seen. No ascit es. Impression: No significant abnormalities seen. Reviewed, dictated and finalized at location . Impression: No significant abnormalities seen.
[2023-05-11 07:56] VITALS: BP 131/96; PULSE 112; RESP 18; TEMP 36.3; O2SAT 98
[2023-05-11 08:56] LABS: Basophils Percent Auto 0.3 % (0.2-1.2); Eosinophils Absolute Auto 0.1 K/mm3 (0-0.3); Eosinophils Percent Auto 0.6 % (0-4.4); Hematocrit 46.3 % (37.0-47.0); Hemoglobin 15.6 g/dL (12.0-15.0); Immature Granulocyte Absolute 0.03 K/mm3 (0.00-0.031); Immature Granulocyte Percent A 0.4 % (0-0.5); Lymphocytes Absolute Auto 0.72 K/mm3 (0.9-3.2); Lymphocytes Percent Auto 9.3 % (18.3-44.2); Mean Corpuscular HGB Conc 33.7 g/dl (32-36); Mean Corpuscular Hemoglobin 32.3 pg (26-34); Mean Corpuscular Volume 95.9 fl (80-100); Mean Platelet Volume 9.2 fl (7.4-10.4); Monocytes Absolute Auto 0.3 K/mm3 (0.1-0.6); Monocytes Percent Auto 4.1 % (2.6-8.5); Neutrophils Absolute Auto 6.6 K/mm3 (1.3-6.7); Neutrophils Percent Auto 85.3 % (45.5-73.1); Platelet Count Result 155 k/mm3 (150-375); Red Blood Count 4.83 M/mm3 (4.2-5.4); Red Cell Distribution Width 12.3 % (11.5-14.5); White Blood Count 7.7 K/mm3 (4.5-10.0)
[2023-05-11] MEDS: SODIUM CHLORIDE 0.9% IV 1,000 ML 999 ML IV CONT ×2 (09:07→09:42)
[2023-05-11 09:09] LABS: Alanine Aminotransferase 18 U/L (6-35); Albumin Level 4.2 g/dL (3.5-5.1); Alkaline Phosphatase 53 U/L (38-126); Anion Gap 4 mmol/L (4-12); Aspartate Amino Transferase 26 U/L (14-36); Bilirubin,Total 1.1 mg/dL (0.2-1.3); Blood Urea Nitrogen 11 mg/dL (7-17); Calcium 8.4 mg/dL (8.4-10.2); Carbon Dioxide 24 mmol/L (22-30); Chloride 108 mmol/L (98-107); Estimated CRCL calculation 127 ml/min; Estimated Glomerular Filt Rate > 60; Glucose 107 mg/dL (65-110); Lipase 47 U/L (23-300); Potassium 3.8 mmol/L (3.4-5.0); Sodium 136 mmol/L (137-145)
[2023-05-11 09:18] VITALS: BP 121/79; BP 133/87; PULSE 92; PULSE 94
[2023-05-11 09:18] LABS: Appearance Urine Clear (Clear); Bacteria Urine None Seen /hpf; Bilirubin Urine 1+ (Negative); Blood Urine Negative (Negative); Color Urine Dark Yellow (Yellow); Glucose Urine UA Negative (Negative); Ketones Urine 3+ mg/dL (Negative); Leukocyte Esterase Ur Trace LEU/UL (Negative); Need Manual Microscopic Reviewed; Nitrate Urine Negative (Negative); Non Pathogenic Casts 0-2; Protein Urine 1+ mg/dL (Negative); Squamous Epithelial Cell Urine Occasional /hpf (Few); WBC Urine 0-5 /hpf (0-3); pH Urine 6.5 (5.0-9.0)
[2023-05-11 09:19] VITALS: BP 122/93; PULSE 100
[2023-05-11 09:19] LABS: Add Urine Microscopic? YES; Specific Grav Ur 1.037 (1.001-1.035)
--- NOTE | 2023-05-11 09:33 | ED.NAVMDI ---
HPI - Nausea/Vomiting/Diarrhea General Chief complaint: Nausea/Vomiting/Diarrhea Stated complaint: n/v/d Time Seen by Provider: 05/11/23 09:02 Source: patient and old records reviewed Mode of arrival: ambulatory Limitations: no limitations History of Present Illness HPI Narrative: Patient is a 32-year-old female who presents the ED with report of nausea, vomiting, diarrhea. Patient reports she ate barbecue on Thursday evening and felt fine. She had leftovers yesterday afternoon and developed nausea, vomiting, diarrhea afterwards. She is concerned she has food poisoning. She has been unable to keep down any food or drink, feels very weak and dehydrated. Reports similar symptoms a few years ago which she believes was also related to food poisoning, was admitted to the hospital at that time. Per records, patient had enteritis and was meeting sepsis criteria. Patient does complain of discomfort throughout her right-sided abdomen into her right flank region. Reports chills, diaphoresis, denies known fever. Denies rectal bleeding, melena. Patient uses marijuana regularly. Hx of IV methamphetamine use in records. Related Data Allergies Allergy/AdvReac Type Severity Reaction Status Date / Time No Known Allergies Allergy Verified 05/11/23 07:53 Review of Systems Review of Systems: CONSTITUTIONAL: See HPI. CARDIOVASCULAR: Denies chest pain. RESPIRATORY: Denies dyspnea. GASTROINTESTINAL: See HPI. GENITOURINARY: Denies dysuria or hematuria. MUSCULOSKELETAL: See HPI. All systems reviewed & are unremarkable except as noted in HPI and below PMFSH Past Medical History Medical History Anorexia Bipolar disorder Depression with anxiety History of suicide attempt (01/2018) Polysubstance abuse Tobacco dependence Surgical History Surgical History History of 2 sections History of arthroscopy of right knee Family History Family History Grandparent Breast cancer Hypertension Diabetes mellitus Blind Father Cholecystitis Social History Social History Social History: The patient lives in [place]. She has 2 children. Currently unemployed. Has smoked 1 pack of cigarettes per day for the last 15 years. Uses marijuana frequently. History IV methamphetamine use, last used the 1st week of June 2020. Denies alcohol abuse. She designates her mother, Emy Morales, as her surrogate decision maker and she wishes to be a full code. Spiritual care concerns: No Exam Narrative: GENERAL: Mildly ill appearing, obese with BMI of 31.1, non-toxic, in no acute distress. HEAD: Normocephalic, atraumatic. RESPIRATORY: Airway patent, respirations nonlabored. Clear to auscultation bilaterally, no rales, rhonchi, wheezing. CARDIOVASCULAR: Regular rate and rhythm ABDOMINAL: Soft, tenderness in R mid and lower abdomen, no rebound, nondistended. Normoactive BS. MUSCULOSKELETAL: Moves all extremities. No gross deformities. SKIN: Warm, dry, normal color. NEURO: A&O X3. Speech clear. PSYCHIATRIC: Appropriate mood and affect. Normal interaction. Course Vital Signs Vital signs: Vital Signs Temperature 97.4 F L 05/11/23 07:56 Pulse Rate 112 H 05/11/23 07:56 Respiratory Rate 18 05/11/23 07:56 Blood Pressure 131/96 H 05/11/23 07:56 Pulse Oximetry 98 05/11/23 07:56 Oxygen Delivery Room Air 05/11/23 07:56 Temperature 97.4 F L 05/11/23 07:56 Pulse Rate 87 05/11/23 11:42 Respiratory Rate 16 05/11/23 11:42 Blood Pressure 145/93 H 05/11/23 11:42 Pulse Oximetry 98 05/11/23 11:42 Oxygen Delivery Room Air 05/11/23 07:56 MDM - Nausea/Vomiting/Diarrhea MDM Narrative Medical decision making narrative: Patient presented to ED with nausea, vomiting, d
[2023-05-11] MEDS: FAMOTIDINE 20 MG/2 ML VIAL IV PUSH (09:42)
[2023-05-11] MEDS: ONDANSETRON INJ 4 MG/2 ML VIAL IV PUSH (09:42)
[2023-05-11 09:49] LABS: Magnesium 1.7 mg/dL (1.6-2.3)
[2023-05-11 10:06] LABS: Amphetamine Screen Urine Negative (Negative); Barbiturate Screen Urine Negative (Negative); Benzodiazepines Screen Urine Negative (Negative); Cannabinoid Screen Urine Positive (Negative); Cocaine Screen Urine Negative (Negative); Methadone Screen Urine Negative (Negative); Opiate Screen Urine Negative (Negative); Phencyclidine Screen Urine Negative (Negative)
[2023-05-11] MEDS: MAGNESIUM SULF 1 GM/D5W 100 ML 1 GM/100 ML BAG IVPB (10:19)
[2023-05-11 10:20] VITALS: BP 119/76; PULSE 93; RESP 16; O2SAT 100
[2023-05-11 11:42] VITALS: BP 145/93; PULSE 87; RESP 16; O2SAT 98
[2023-05-11 12:19] VITALS: BP 116/74; PULSE 89; RESP 15; TEMP 36.4; O2SAT 98
== END 2023-05-11 12:21 | disposition home or self-care (01) ==
PROVIDERS: Family Medicine; Emergency Provider Physician Assistant
DX: K52.9 Noninfective gastroenteritis and colitis, unspecified (principal); E86.0 Dehydration; F17.210 Nicotine dependence, cigarettes, uncomplicated
CPT/HCPCS: 36415; 74177; 80053; 80307; 81001; 81025; 83690; 83735; 85025; 96361; 96365; 96375; 99284; J2405; J3475; J7030; Q9967